=== PATIENT | female | born 1990 | race African-American/Black ===

== ENCOUNTER 2019-01-24 22:25 | Emergency (ER) | payer OTHER, SELFPAY ==
[2019-01-24] MEDS ORDERED: Clindamycin 150 MG CAP ONE (22:50)
[2019-01-24] MEDS ORDERED: Cephalexin 250 MG CAP ONE (22:50)
== END 2019-01-24 23:01 | disposition home or self-care (01) ==
LOC: NAV ERS 22:25
DX: O99.711 Diseases of the skin and subcutaneous tissue complicating pregnancy, first trimester (principal); L03.115 Cellulitis of right lower limb; Z3A.10 10 weeks gestation of pregnancy
CPT/HCPCS: 99283

== ENCOUNTER 2019-01-25 13:34 | Emergency (ER) | payer OTHER | END 2019-01-25 14:08 | disposition home or self-care (01) | LOC: NAV ERS 13:34 | DX: O99.711 Diseases of the skin and subcutaneous tissue complicating pregnancy, first trimester (principal); L03.115 Cellulitis of right lower limb; Z3A.10 10 weeks gestation of pregnancy | CPT/HCPCS: 99283 ==